=== PATIENT | female | born 1955 | race Caucasian/White ===

== ENCOUNTER 2017-06-20 09:40 | Outpatient (CLI) | payer OTHER ==
--- NOTE | 2017-06-20 11:13 | MMO ---
BILATERAL SCREENING MAMMOGRAM: Date: 06/20/17 INDICATION: Annual exam. COMPARISON: History of left mastectomy with TRAM flap procedure. FINDINGS: Exam compared to prior dated 08/20/13. There is fatty atrophy of the reconstructed left breast with a surgical clip. This is stable. There a re scattered fibroglandular elements within the right breast. The benign-appearing densities within t he right breast are stable. There are benign-appearing calcifications within both breasts. No suspicious mass, cluster of microcalcifications, or area of architectural distortion is evident. IMPRESSION: BIRADS 2: Benign Finding(s) Recommend routine annual mammographic screening. POS: [facility]
== END 2017-06-20 09:41 | disposition home or self-care (01) ==
LOC: MAMMO 09:40
PROVIDERS: ATTEND Family Medicine
DX: Z12.31 Encounter for screening mammogram for malignant neoplasm of breast (principal)
CPT/HCPCS: 77067; G0202

== ENCOUNTER 2017-12-29 16:24 | Emergency (ER) | payer OTHER ==
--- NOTE | 2017-12-29 17:40 | CT ---
CT BRAIN WITHOUT CONTRAST: 12/29/17 HISTORY: Hit head on the microscope. COMPARISON: None. FINDINGS: Moderate subcortical and deep white matter microangiopathic changes worse in the right frontal lobe. No acute territorial infarct or hemorrhage. No midline shift or mass effect. Ventricular size and ext ra-axial CSF spaces are normal. Calvarium is intact. The paranasal sinuses and mastoids are clear. IMPRESSION: Chronic changes. No acute intracranial abnormality. POS: [facility]
[2017-12-29] MEDS ORDERED: Ibuprofen 800 MG TAB ONE (17:46)
== END 2017-12-29 17:45 | disposition home or self-care (01) ==
LOC: ERS 16:24
DX: S00.03XA Contusion of scalp, initial encounter (principal); I10 Essential (primary) hypertension; E78.5 Hyperlipidemia, unspecified; W20.8XXA Other cause of strike by thrown, projected or falling object, initial encounter
CPT/HCPCS: 70450

== ENCOUNTER 2018-11-14 08:03 | Outpatient (CLI) | payer OTHER ==
--- NOTE | 2018-11-15 11:12 | MMO ---
Bilateral MAMMO Bilat Screen [facility]DI+NADER. CLINICAL HISTORY: Patient is 63 years old and is seen for screening. The patient has the following family history of breast cancer: mother. The patient has a history of left Mastectomy at age 38 and left Transflap at age 38. VIEWS: The views performed were: bilateral craniocaudal with tomosynthesis and bilateral mediolateral oblique with tomosynthesis. FILMS COMPARED: The present examination has been compared to prior imaging studies performed at [facility] on 01/27/2012, 08/20/2013, 04/06/2016 and 06/20/2017. MAMMOGRAM FINDINGS: There are scattered fibroglandular densities. There are stable benign appearing calcifications seen in both breasts. There are no suspicious masses, suspicious calcifications, or new areas of architectural distortion. IMPRESSION: THERE IS NO MAMMOGRAPHIC EVIDENCE OF MALIGNANCY. A ROUTINE FOLLOW-UP MAMMOGRAM IN 1 YEAR IS RECOMMENDED. THE RESULTS OF THIS EXAM WERE SENT TO THE PATIENT. ACR BI-RADS Category 2 - Benign finding MAMMOGRAPHY NOTE: 1. A negative mammogram report should not delay a biopsy if a dominant of clinically suspicious mass is present. 2. Approximately 10% to 15% of breast cancers are not detected by mammography. 3. Adenosis and dense breasts may obscure an underlying neoplasm.
== END 2018-11-14 08:04 | disposition home or self-care (01) ==
LOC: BICMAMMO 08:03
PROVIDERS: ATTEND Family Medicine
DX: Z12.31 Encounter for screening mammogram for malignant neoplasm of breast (principal); Z80.3 Family history of malignant neoplasm of breast; Z90.12 Acquired absence of left breast and nipple
CPT/HCPCS: 77063; 77067

== ENCOUNTER 2019-12-31 08:20 | Observation (INO) | payer OTHER ==
[2019-12-31] MEDS ORDERED: Aspirin Chewable 81 MG TAB ONE (08:59)
[2019-12-31] MEDS ORDERED: Nitroglycerin 2% Ointment 1 INCH/1 GM Packet ONE (08:59)
--- NOTE | 2019-12-31 09:24 | RAD ---
SINGLE VIEW OF THE CHEST: HISTORY: Shortness of breath and chest pain. FINDINGS: Single view of the chest shows a normal sized cardiomediastinal silhouette. There is no evidence of c onsolidation, mass, or pleural effusion. The bones are unremarkable. IMPRESSION: No evidence of acute cardiopulmonary disease. POS: [facility]
[2019-12-31] MEDS ORDERED: Iopamidol-370 76% 500 ML 1 ML ONE (09:48)
[2019-12-31 10:07] LABS: #Basophils 0.1 thou/uL (0.0-0.2); #Eosinphils 0.4 thou/uL (0.0-0.7); #Lymphocytes 2.1 thou/uL (1.20-3.40); #Monocytes 0.7 thou/uL (0.11-0.59); #Neutrophils 7.6 thou/uL (1.40-6.50); %Basophils 0.5 % (0.0-1.0); %Eosinophils 3.3 % (0.0-10.0); %Lymphocytes 19.3 % (21.0-51.0); %Monocytes 6.7 % (0.0-10.0); %Neutrophils 70.2 % (42.0-75.0); Hemoglobin 11.5 g/dL (12.0-16.0); Mean Corpuscular HGB CONC 33.1 g/dL (32.0-36.0); Mean Corpuscular Hemoglobin 29.4 pg (27.0-31.0); Mean Corpuscular Volume 88.8 fL (78.0-98.0); Mean Platelet Volume 7.6 fL (7.4-10.4); Platelet Count 273 thou/uL (130-400); RBC Distribution Width 12.3 % (11.5-14.5); Red Blood Cell (RBC) Count 3.91 mill/uL (4.20-5.40); White Blood Cell (WBC) Count 10.8 thou/uL (4.8-10.8)
[2019-12-31 10:30] LABS: ALT (SGPT) 18 U/L (8-55); AST (SGOT) 23 U/L (5-34); Albumin 3.5 g/dL (3.4-4.8); Alkaline Phosphatase 74 U/L (40-110); Anion Gap 13 mmol/L (10-20); BUN (Urea Nitrogen) 20 mg/dL (9.8-20.1); Bilirubin, Total 0.5 mg/dL (0.2-1.2); CK (CPK) 121 U/L (29-168); Calc. Creatinine Clearance 0 mL/min (70-130); Calcium 8.8 mg/dL (7.8-10.44); Carbon Dioxide 25 mmol/L (23-31); Chloride 103 mmol/L (98-107); Estimated GFR-MDRD 47; Globulin 3.2 g/dL (2.4-3.5); Glucose 150 mg/dL (80-115); Lipase 96 U/L (8-78); Potassium 4.1 mmol/L (3.5-5.1); Protein, Total 6.7 g/dL (6.0-8.3); Sodium 137 mmol/L (136-145)
[2019-12-31 10:54] LABS: CKMB 3.8 ng/mL (0-6.6)
[2019-12-31] MEDS ORDERED: diphenhydrAMINE 50 MG/ML VIAL ONE (11:40)
[2019-12-31] MEDS ORDERED: Metoclopramide HCl 10 MG/2 ML VIAL ONE (11:40)
[2019-12-31] MEDS ORDERED: Furosemide 40 MG/4 ML VIAL ONE (11:45)
--- NOTE | 2019-12-31 12:12 | CT ---
CT arteriogram chest with IV contrast and 3-D imaging HISTORY: Dyspnea. Chest pain. FINDINGS: There is good contrast opacification of the pulmonary arteries and thoracic aorta with norm al branching of the great vessels at the aortic arch. No pleural fluid, consolidation, pneumothorax, or mediastinal adenopathy. Tiny cystic lesion noted wi thin the posterior aspect of the superior segment right lower lobe. Degenerative changes throughout the thoracic spine. Postoperative changes of the left axilla. IMPRESSION : No CT evidence of pulmonary embolus.
[2019-12-31 13:57] VITALS: BMI 36.3
[2019-12-31] MEDS ORDERED: Ondansetron ODT 4 MG TAB SL PRN (14:39)
[2019-12-31] MEDS ORDERED: Ondansetron PF 4 MG/2 ML Vial IVP PRN ×2 (14:39→16:38)
[2019-12-31 14:46] LABS: Troponin I 0.027 ng/mL (< 0.028)
[2019-12-31] MEDS ORDERED: Nitroglycerin 2% Ointment 1 INCH/1 GM Packet TOP SCH (15:00)
[2019-12-31] MEDS ORDERED: hydrALAZINE 20 MG/ML VIAL SLOW IVP PRN (16:24)
[2019-12-31] MEDS ORDERED: Ibuprofen 200 MG TAB PO PRN (16:24)
[2019-12-31] MEDS ORDERED: Acetaminophen 325 MG TAB PO PRN (16:24)
[2019-12-31] MEDS ORDERED: Labetalol HCl 100 MG/20 ML VIAL SLOW IVP PRN (16:24)
[2019-12-31] MEDS ORDERED: Ondansetron ODT 4 MG TAB PO PRN (16:38)
[2019-12-31] MEDS ORDERED: Calcium Carbonate 500 MG ChewTAB PO PRN (16:38)
[2019-12-31] MEDS ORDERED: Senokot S 8.6-50 MG TAB PO PRN (16:38)
[2019-12-31] MEDS ORDERED: Dextrose 50% Abboject 50 ML SYRINGE SLOW IVP PRN (16:40)
[2019-12-31] MEDS ORDERED: Dextrose 5% in Water 1,000 ML IV PRN (16:40)
[2019-12-31] MEDS ORDERED: Insulin Regular 300 UNITS/3 ML VIAL SC PRN (16:40)
[2019-12-31] MEDS ORDERED: Nitroglycerin 0.4 MG TAB (25 Tab Bottle) PO PRN (16:42)
[2019-12-31] MEDS ORDERED: Lisinopril 10 MG TAB PO SCH (16:45)
[2019-12-31] MEDS ORDERED: Non-Formulary Item 1 EACH (Carvedilol [Carvedilol] 3.125 MG) PO SCH (17:00)
--- NOTE | 2019-12-31 17:02 | HP ---
PRIMARY CARE PHYSICIAN: Dr. Luis Jones. PRIMARY CONDUIT INSTALLER: Dr. Abraham Weston. CHIEF COMPLAINT: Chest discomfort with shortness of breath of 1-week duration. HISTORY OF PRESENT ILLNESS: The patient is a 64-year-old female with diabetes mellitus type 2, hypertension, and hyperlipidemia, presented to the emergency room with above complaints. Over the last 1 week, the patient developed gradual worsening shortness of breath along with chest discomfort. The shortness of breath is precipitated by lying down flat as well as on bending. She has chest tightness, especially when she is short of breath. The chest tightness is short in duration. It is radiating to her jaw. She has been scared to sleep due to this reason. She currently works as an OR nurse and has difficulty keeping her mask on. No fever, chills, recent immobilization , travel, sick contacts reported. No nausea, vomiting, diaphoresis, palpitations , or lower extremity edema reported. In the emergency room, her initial vital signs showed temperature 98.9 with respirations of 17, pulse rate of 73 with a blood pressure of 205/96, O2 saturation of 98% on room air. Her EKG showed sinus rhythm without significant ST-T wave changes. CT angiogram of the chest was negative. She received aspirin, Benadryl, Lasix, Reglan, along with nitroglycerin patch. She complains of intractable headache at this time that got worse with nitroglycerin patch. No double vision, blurring of vision, or facial asymmetry reported. PAST MEDICAL HISTORY: 1. Hypertension. 2. Diabetes mellitus type 2. 3. Hyperlipidemia. 4. Breast cancer. 5. Obesity. 6. Attention deficit disorder. PAST SURGICAL HISTORY: 1. Left inguinal hernia. 2. Left mastectomy. 3. Right oophorectomy. 4. Surgery for ruptured tubal . 5. Closed fracture of lumbar vertebra. ALLERGIES: NO KNOWN DRUG ALLERGIES. CURRENT HOME MEDICATIONS: 1. Carvedilol 3.125 mg b.i.d. 2. Fenofibrate 145 mg daily. 3. Lasix 20 mg daily. 4. Gabapentin 300 mg daily. 5. Vyvanse 60 mg daily. 6. Lisinopril 10 mg daily. 7. Meloxicam 15 mg daily. 8. Metformin 1000 mg daily. 9. Crestor 10 mg daily. FAMILY HISTORY: Father at age of 77. He was diagnosed with diabetes and Alzheimer's. Mother at the age of 85 with GI bleed. She also had breast cancer and diabetes. Cancer runs in her family. SOCIAL HISTORY: The patient currently works in hospital OR. She currently lives at home with her spouse. She is a former smoker. She makes her own decision with the help of her family. REVIEW OF SYSTEMS: All other review of systems reviewed and were found negative. PHYSICAL EXAMINATION: VITAL SIGNS: As discussed above. GENERAL: A 64-year-old female, in no apparent distress. HEENT: Head, atraumatic and normocephalic. Sclerae anicteric. Moist mucous membranes. No oral lesion. NECK: Supple. No JVD appreciated. No carotid bruit. LUNGS: Clear to auscultation bilaterally. No wheezing, rales, or rhonchi. HEART: S1 and S2 present. Regular rate and rhythm. No rubs or gallops. ABDOMEN: Soft and nontender. Bowel sounds present. EXTREMITIES: No edema or calf tenderness. NEUROLOGY: Grossly nonfocal. Moves all 4 extremities. PSYCHIATRY: Alert, awake, and oriented x3. LYMPH NODES: No palpable lymph nodes in the neck. MUSCULOSKELETAL: No joint swelling or tenderness. LABORATORY FINDINGS: CBC showed WBC 10.8 with hemoglobin 11.5, hematocrit 34.7 , and platelets 273. D-dimer was negative at 0.42. Chemistry showed sodium 137, potassium 4.1, chloride 103, bicarb 25, BUN of 20, creatinine 1.1. LFTs in normal range. Troponin was of 0.032. Repeat troponin 0.027. BNP was 441. EKG by my review showed sinus rhythm without significant ST-T wave changes. Chest x-ray by my review was negative for infiltrate or edema. CT angiogram of the chest was negative for infiltrate or edema. IMPRESSION: 1. Chest discomfort with shortness of breath. Her symptoms are concerning for cardiac etiology. 2. Diabetes mellitus type 2. 3. Hypertension with hypertensive urgency. 4. Headache probably due to nitroglycerin patch. 5. History of migraine. 6. History of breast cancer. 7. Hyperlipidemia. 8. Obesity with a BMI of 36.4. 9. Chronic kidney disease, stage 3. 10. Chronic anemia suspected due to nutritional deficiency. PLAN: The patient will be monitored in the telemetry unit as observation. Cardiology will be consulted. We will continue aspirin. We will follow serial troponins. We will keep her n.p.o. past midnight. Insulin sliding scale. We will resume her home medications. Echocardiogram has been ordered. The patient understands the above plan of care. Job ID: [id number] MTDWilbert
[2019-12-31] MEDS: Carvedilol 6.25 MG TAB PO SCH (17:22)
[2019-12-31 17:49] LABS: Troponin I 0.025 ng/mL (< 0.028)
[2019-12-31] MEDS ORDERED: Furosemide 40 MG/4 ML VIAL SLOW IVP SCH (21:00)
[2019-12-31] MEDS: Lisinopril 10 MG TAB PO SCH (21:25)
[2019-12-31] MEDS: Famotidine 20 MG TAB PO SCH (21:26)
[2020-01-01 05:33] LABS: #Basophils 0.1 thou/uL (0.0-0.2); #Eosinphils 0.3 thou/uL (0.0-0.7); #Lymphocytes 2.2 thou/uL (1.20-3.40); #Monocytes 0.7 thou/uL (0.11-0.59); #Neutrophils 4.6 thou/uL (1.40-6.50); %Basophils 0.7 % (0.0-1.0); %Eosinophils 3.8 % (0.0-10.0); %Lymphocytes 28.2 % (21.0-51.0); %Neutrophils 58.3 % (42.0-75.0); Hemoglobin 12.5 g/dL (12.0-16.0); Mean Corpuscular HGB CONC 32.6 g/dL (32.0-36.0); Mean Corpuscular Hemoglobin 29.1 pg (27.0-31.0); Mean Corpuscular Volume 89.1 fL (78.0-98.0); Platelet Count 283 thou/uL (130-400); RBC Distribution Width 12.5 % (11.5-14.5); White Blood Cell (WBC) Count 7.9 thou/uL (4.8-10.8)
[2020-01-01 05:58] LABS: ALT (SGPT) 17 U/L (8-55); AST (SGOT) 26 U/L (5-34); Albumin 3.4 g/dL (3.4-4.8); Alkaline Phosphatase 72 U/L (40-110); Anion Gap 16 mmol/L (10-20); BUN (Urea Nitrogen) 25 mg/dL (9.8-20.1); Bilirubin, Total 0.6 mg/dL (0.2-1.2); Calc. Creatinine Clearance 73 mL/min (70-130); Calcium 8.7 mg/dL (7.8-10.44); Carbon Dioxide 24 mmol/L (23-31); Cardiac Risk 4.7 (Less than 4.5); Chloride 103 mmol/L (98-107); Cholesterol 154 mg/dl (< 200 Desired); Estimated GFR-MDRD 45; Globulin 3.6 g/dL (2.4-3.5); Glucose 106 mg/dL (80-115); HDL Cholesterol 33 mg/dL (>60 Neg Risk); LDL Cholesterol, Calculated 90 mg/dL; Magnesium 1.7 mg/dL (1.6-2.6); Potassium 3.6 mmol/L (3.5-5.1); Sodium 139 mmol/L (136-145); Triglycerides 156 mg/dL (Less than 150)
[2020-01-01] MEDS ORDERED: Magnesium 2 GM/50 ML 2 GM in Premix Bag 1 BAG IVPB SCH (07:00)
[2020-01-01] MEDS ORDERED: Magnesium Sulfate 2 GM in Sodium Chloride 0.9% 100 ML IVPB SCH (07:00)
[2020-01-01] MEDS ORDERED: metFORMIN 500 MG TAB PO SCH (08:00)
[2020-01-01] MEDS: Gabapentin 300 MG CAP PO SCH (08:21)
[2020-01-01] MEDS: Lisinopril 10 MG TAB PO SCH ×2 (08:21→20:40)
[2020-01-01] MEDS: Meloxicam 15 MG TAB PO SCH (08:21)
[2020-01-01] MEDS: Carvedilol 6.25 MG TAB PO SCH ×2 (08:21→17:10)
[2020-01-01] MEDS: Famotidine 20 MG TAB PO SCH ×2 (08:21→20:40)
[2020-01-01] MEDS ORDERED: Furosemide 20 MG TAB PO SCH (09:00)
[2020-01-01] MEDS ORDERED: FENOFIBRATE 145 MG PO SCH (09:00)
[2020-01-01] MEDS ORDERED: Furosemide 20 MG/2 ML VIAL SLOW IVP SCH (09:00)
[2020-01-01] MEDS ORDERED: Aspirin 325 mg Enteric Coated Tablet PO SCH (09:00)
[2020-01-01] MEDS ORDERED: Regadenoson 0.4 MG/5 ML SYRINGE ONE (09:40)
--- NOTE | 2020-01-01 15:57 | CON ---
DATE OF CONSULTATION: HISTORY OF PRESENT ILLNESS: Dena Jluien is a 64-year-old white female, who I have followed since 2006. At that time, she was sent for preoperative evaluation prior to possible lap band surgery. She had an abnormal Cardiolite treadmill test and underwent cardiac catheterization in October 2006. This revealed normal coronary arteries and moderate left ventricular dysfunction with ejection fraction of 30 % to 35%. She was placed on carvedilol and her left ventricular function gradually improved. In January 2008, she had ejection fraction of 50% to 55%. This has been maintained over time with last echo in April 2017. Ejection fraction was 50 % to 55% at that time and that was the last time that I have seen her, as she has not returned for followup. She now complains over the last 2 to 3 weeks of increased shortness of breath. To me, she denies any chest discomfort, but that was one of her complaints. This seems to have worsened with the COVID-19 pandemic in that she has to wear her mask all the time and this seems to make the shortness of breath worse. She states that she is short of breath all the time. She denies any peripheral edema. She denies any palpitations. PAST MEDICAL HISTORY: Hypertension, diabetes, hypercholesterolemia, diastolic dysfunction seen on echo, history of breast cancer. MEDICATIONS: On the computer is listed that she takes: 1. Carvedilol 3.125 b.i.d.; however, she states she takes 12.5 b.i.d. She is unsure of her other medications, but on the computer, the list is: 2. Fenofibrate 145 daily. 3. Furosemide 20 daily (she thinks this was discontinued due to abnormal creatinine). 4. Gabapentin 300 daily. 5. Vyvanse 60 daily. 6. Lisinopril 10 daily. 7. Meloxicam 15 daily. 8. Metformin 1000 mg daily. 9. Crestor 10 mg daily. ALLERGIES: NONE. SOCIAL HISTORY: Former smoker. She rarely drinks. PAST SURGICAL HISTORY: Left inguinal herniorrhaphy, surgery for ruptured tubal , right oophorectomy, left mastectomy, right knee arthroscopy, open cholecystectomy, hysterectomy. FAMILY HISTORY: Negative for coronary artery disease. REVIEW OF SYSTEMS: A 10-point review of systems is otherwise unremarkable. PHYSICAL EXAMINATION: VITAL SIGNS: Blood pressure 178/96 and pulse of 76. HEENT: PERRL. NECK: Supple. CHEST: Clear. CARDIAC: S1 and S2 normal without any S3, S4, or murmurs. Carotid upstrokes are normal without bruits. ABDOMEN: Obese. Normal bowel sounds. No tenderness. EXTREMITIES: No clubbing, cyanosis, or edema. NEUROLOGIC: Grossly intact. SKIN: Warm and dry. DIAGNOSTIC DATA: EKG reveals normal sinus rhythm and is unremarkable. Echocardiogram revealed ejection fraction of 50% to 55% with moderate left atrial enlargement, mild mitral regurgitation. Chest x-ray was normal. CT angiogram of the chest revealed no evidence of pulmonary embolism. LABORATORY DATA: CBC is unremarkable. Sodium 139, potassium 3.6, chloride 103, carbon dioxide 24, BUN 25, creatinine 1.21. Troponin I 0.032. Cholesterol 154, triglycerides 156, HDL 33, LDL 90. TSH is normal. BNP 441.3. IMPRESSION: 1. Shortness of breath. A lot of her symptoms sound anxiety related. 2. The patient denies any type of chest discomfort to me, although she did to the admitting physician. 3. Hypertension, poorly controlled. 4. Hypercholesterolemia, poorly controlled. 5. Diabetes. 6. History of normal coronary arteries in October 2006. 7. History of breast cancer. 8. Obesity. 9. Chronic kidney disease. 10. Former smoker. PLAN: Ms. Julien will be restarted on the carvedilol 12.5 b.i.d. that she presently takes at home. I have asked her to have someone bring her medicines from home since it is somewhat confusing to me exactly what medicine she is currently taking. Apparently, the furosemide was discontinued due to an elevated creatinine, but she is uncertain if she is taking lisinopril. She will undergo adenosine Cardiolite testing to further evaluate possible cardiac etiology of her symptoms. Job ID: [id number] MTDD
[2020-01-01] MEDS: Insulin Regular 300 UNITS/3 ML VIAL SC PRN (17:11)
--- NOTE | 2020-01-01 18:44 | PDOC.HOSPP ---
- Subjective Encounter Date: 01/01/20 Encounter Time: 17:00 Subjective: Patient seen and examined for SOB. No cough/CP. No new complaints. No overnight events - Objective Vital Signs & Weight: Vital Signs (12 hours) Temp Pulse Resp BP Pulse Ox 01/01/20 15:33 98.3 F 17 138/79 96 01/01/20 12:27 97.7 F 82 18 138/78 96 01/01/20 07:42 98.3 F 76 19 178/96 H 95 Weight Weight 224 lb 3.362 oz I&O: 12/31/19 01/01/20 01/02/20 06:59 06:59 06:59 Intake Total 480 Balance 480 Result Diagrams: 01/01/20 05:06 01/01/20 05:06 Additional Labs: Accuchecks 01/01/20 01/01/20 12/31/19 16:55 05:30 20:41 POC Glucose 170 H 134 H 180 H Radiology Reviewed by me: Yes (CXR- reviewed) EKG Reviewed by me: Yes (SR, PAT earlier) Hospitalist ROS - Review of Systems Respiratory: denies: cough, dry, shortness of breath, hemoptysis, SOB with excertion, pleuritic pain, sputum, wheezing, other Cardiovascular: denies: chest pain, palpitations, orthopnea, paroxysmal noc. dyspnea, edema, light headedness, other Gastrointestinal: denies: nausea, vomiting, abdominal pain, diarrhea, constipation, melena, hematochezia, other - Medication Medications: Active Medications Generic Name Dose Route Start Last Admin Trade Name Freq PRN Reason Stop Dose Admin Acetaminophen 650 mg 12/31/19 16:24 12/31/19 16:40 Tylenol PO 650 mg Q4H PRN Administration Headache/Fever/Mild Pain (1-3) Aspirin 325 mg 01/01/20 09:00 01/01/20 09:22 Ecotrin PO 325 mg DAILY ALYX Administration Carvedilol 12.5 mg 01/01/20 17:00 01/01/20 17:10 Coreg PO 12.5 mg BID-WM ALYX Administration Famotidine 20 mg 12/31/19 21:00 01/01/20 08:21 Pepcid PO 20 mg BID ALYX Administration Furosemide 20 mg 01/01/20 09:00 01/01/20 08:22 Lasix SLOW IVP 20 mg DAILY ALYX Administration Gabapentin 300 mg 01/01/20 09:00 01/01/20 08:21 Neurontin PO 300 mg DAILY ALYX Administration Hydralazine HCl 10 mg 12/31/19 16:24 12/31/19 16:39 Apresoline SLOW IVP 10 mg Q4H PRN Administration SBP Greater Than 180 Insulin Human Regular 0 units 12/31/19 16:40 01/01/20 17:11 Humulin R SC 2 unit .MILD SLIDING SCALE PRN Administration Mild Correctional Scale Lisinopril 10 mg 12/31/19 21:00 01/01/20 08:21 Zestril PO 10 mg BID ALYX Administration Meloxicam 15 mg 01/01/20 09:00 01/01/20 08:21 Mobic PO 15 mg DAILY ALYX Administration Sodium Chloride 10 ml 01/01/20 09:00 01/01/20 08:22 Flush - Normal Saline IVF 10 ml Q12HR ALYX Administration - Exam General Appearance: NAD Neck: supple, no JVD Heart: RRR, no gallops, no rubs, normal peripheral pulses Respiratory: no wheezes, no rales, no ronchi, normal chest expansion Gastrointestinal: soft, non-tender, non-distended, normal bowel sounds Extremities: no cyanosis, no clubbing, no edema Neurological: no new deficit Psychiatric: normal affect, A&O x 3 Hosp A/P - Plan DVT proph w/SCDs 1. SOB with ?Chest tightness 2. DM2. 3. Hypertension with hypertensive urgency. 4. PAT 5. History of migraine. 6. History of breast cancer. 7. Hyperlipidemia. 8. Obesity with a BMI of 36.4. 9. Chronic kidney disease, stage 3. 10. Chronic anemia suspected due to nutritional deficiency. PLAN: Change ASA to 81 mg/d Echo reviewed Await stress test Coreg changed to home dose Change Lisinopril to 20 mg daily Cont other meds Resume Metformin after 48 hr Cardio input appreciated
[2020-01-01] MEDS ORDERED: Rosuvastatin 10 MG TAB PO SCH (21:00)
[2020-01-02] MEDS: Insulin Regular 300 UNITS/3 ML VIAL SC PRN (06:09)
[2020-01-02] MEDS ORDERED: Aspirin 81 mg Enteric Coated Tablet PO SCH (09:00)
[2020-01-02] MEDS ORDERED: Furosemide 20 MG TAB PO SCH (09:00)
[2020-01-02] MEDS ORDERED: Lisinopril 20 MG TAB PO SCH (09:00)
[2020-01-02 11:20] VITALS: TEMP 97.6
--- NOTE | 2020-01-02 12:00 | NM ---
CARDIAC SPECT: CLINICAL HISTORY: 64-year-old female with chest pain, hypertension, diabetes, and dyslipidemia. TECHNIQUE: A myocardial perfusion scan was performed using the single isotope two day protocol with 32 mCi techn etium-99m sestamibi injected intravenously for both stress and rest images. Exercise stress was monit ored and interpreted by Onel Han NP. FINDINGS: Fairly homogeneous tracer distribution is seen in the myocardial segments on stress and rest images w ithout fixed or reversible defects. GATED SPECT LVEF: 62%. WALL MOTION EXAM: Normal. IMPRESSION: Normal myocardial perfusion scan. POS: [facility]
[2020-01-02 12:39] VITALS: BP 142/96
[2020-01-02] MEDS: Carvedilol 6.25 MG TAB PO SCH (12:49)
[2020-01-02] MEDS: Gabapentin 300 MG CAP PO SCH (12:49)
[2020-01-02] MEDS: Meloxicam 15 MG TAB PO SCH (12:49)
[2020-01-02] MEDS: Famotidine 20 MG TAB PO SCH (12:49)
--- NOTE | 2020-01-02 16:15 | EKG ---
Test Reason : Blood Pressure : / mmHG Vent. Rate : 066 BPM Atrial Rate : 066 BPM P-R Int : 146 ms QRS Dur : 078 ms QT Int : 402 ms P-R-T Axes : 087 066 046 degrees QTc Int : 421 ms Normal sinus rhythm Normal ECG Confirmed by HOWARD CHANG, ALEXANDR ([id number]), industrial editor KARYN BROOSK ([id number]) on 01/02/2020 4:15:00 PM Referred By: Confirmed By:ALEXANDR LAWRENCE MD
--- NOTE | 2020-01-02 16:48 | DIS ---
DATE OF ADMISSION: 12/31/2019 DATE OF DISCHARGE: 01/02/2020 DISCHARGE DISPOSITION: Home. FOLLOWUP: 1. Follow up with primary care physician, Dr. Luis Jones in 1 week. 2. Follow up with Dr. Abraham Weston in 3 to 4 weeks. The patient was seen and examined on the day of discharge. Denies any new complaints. No chest pain, shortness of breath, or palpitations. DISCHARGE MEDICATIONS: Same as admission medication. Clonidine was added on a p.r.n. basis. BRIEF HOSPITAL COURSE: The patient is a 64-year-old white female with hypertension, diabetes mellitus type 2, hyperlipidemia, and chronic diastolic heart failure, presented to the hospital with shortness of breath along with questionable chest tightness. She was monitored on the telemetry unit. First set of troponin was 0.032. Repeat troponins were negative. BNP was 441. The patient was evaluated by Cardiology, Dr. Abraham Weston, who recommended a stress test. The stress test was negative for reversible ischemia. There was no wall motion abnormality. Ejection fraction was 62%. Echocardiogram showed ejection fraction 50% to 55% with mild mitral regurgitation. She has been cleared by Cardiology for discharge. FINAL DIAGNOSES: 1. Shortness of breath of unclear etiology. Probably anxiety related. 2. Questionable chest tightness, acute coronary syndrome ruled out. 3. Normal coronaries in 2006. 4. Hypertension. 5. Hyperlipidemia. 6. Diabetes mellitus type 2. 7. History of breast cancer. 8. History of migraine. 9. Paroxysmal atrial tachycardia, resolved after resuming beta blockers. 10. Chronic anemia, suspected due to nutritional deficiency. 11. Chronic kidney disease, stage 3. 12. Obesity with a BMI of 36.4. 13. Hyperlipidemia. 14. The patient understands the above plan of care. Job ID: [id number]
== END 2020-01-02 16:04 | disposition home or self-care (01) ==
LOC: ERS 08:20 → 2SE 13:44
PROVIDERS: ADMIT Internal Medicine; ATTEND Internal Medicine
DX: R06.02 Shortness of breath (principal); R07.89 Other chest pain; I16.0 Hypertensive urgency; I13.0 Hypertensive heart and chronic kidney disease with heart failure and stage 1 through stage 4 chronic kidney disease, or unspecified chronic kidney disease; E11.22 Type 2 diabetes mellitus with diabetic chronic kidney disease; N18.3 Chronic kidney disease, stage 3 (moderate); I50.32 Chronic diastolic (congestive) heart failure; D63.1 Anemia in chronic kidney disease; E78.5 Hyperlipidemia, unspecified; F98.8 Other specified behavioral and emotional disorders with onset usually occurring in childhood and adolescence; R51 Headache; E78.00 Pure hypercholesterolemia, unspecified; I47.1 Supraventricular tachycardia; E66.9 Obesity, unspecified; Z68.36 Body mass index [BMI] 36.0-36.9, adult; Z87.891 Personal history of nicotine dependence; Z79.1 Long term (current) use of non-steroidal anti-inflammatories (NSAID); Z79.84 Long term (current) use of oral hypoglycemic drugs; Z79.899 Other long term (current) drug therapy
CPT/HCPCS: 36415; 36416; 71045; 71275; 78452; 80053; 80061; 82550; 82553; 83690; 83735; 83880; 84443; 84484; 85025; 85379; 93005; 93017; 93306; 94760; 96365; 96375; 96376; A9500; G0378; J0360; J1200; J1815; J1940; J2765; J2785; J3475; Q9967

== ENCOUNTER 2020-07-08 13:51 | Outpatient (CLI) | payer OTHER ==
--- NOTE | 2020-07-08 14:22 | RAD ---
TWO VIEW CHEST: 07/08/20 INDICATIONS: Dyspnea. COMPARISON: 12/31/19. Mild cardiomegaly is stable. Mild vascular engorgement. There are hazy linear and somewhat patchy den sities seen peripherally at both mid and lower lungs which could represent ground glass type infiltra te of COVID pneumonia. No effusion. IMPRESSION: Increased interstitial and hazy alveolar opacities more prominent in the peripheral left lower lung f ield. Follow-up recommended. POS: [facility]
== END 2020-07-08 13:52 | disposition home or self-care (01) ==
LOC: BICRAD 13:51
PROVIDERS: ATTEND Internal Medicine Pulmonary Disease
DX: R06.00 Dyspnea, unspecified (principal); R91.8 Other nonspecific abnormal finding of lung field
CPT/HCPCS: 71046

== ENCOUNTER 2021-07-17 04:57 | Emergency (ER) | payer OTHER ==
[2021-07-17] MEDS ORDERED: Morphine 4 MG/ML VIAL ONE ×2 (05:37→06:40)
[2021-07-17] MEDS ORDERED: Ondansetron PF 4 MG/2 ML Vial ONE (05:37)
[2021-07-17 05:59] LABS: #Basophils 0.1 thou/uL (0.0-0.2); #Eosinphils 0.4 thou/uL (0.0-0.7); #Lymphocytes 2.4 thou/uL (1.20-3.40); #Monocytes 0.6 thou/uL (0.11-0.59); #Neutrophils 4.2 thou/uL (1.40-6.50); %Basophils 1.1 % (0.0-1.0); %Eosinophils 5.1 % (0.0-10.0); %Monocytes 8.1 % (0.0-10.0); %Neutrophils 54.7 % (42.0-75.0); Mean Corpuscular HGB CONC 35.7 g/dL (32.0-36.0); Mean Corpuscular Hemoglobin 31.2 pg (27.0-31.0); Mean Corpuscular Volume 87.5 fL (78.0-98.0); Mean Platelet Volume 6.9 fL (7.4-10.4); Platelet Count 249 thou/uL (130-400); RBC Distribution Width 11.8 % (11.5-14.5); Red Blood Cell (RBC) Count 4.16 mill/uL (4.20-5.40); White Blood Cell (WBC) Count 7.6 thou/uL (4.8-10.8)
[2021-07-17 06:01] LABS: Bacteria/HPF 1+ HPF (None Seen); Bilirubin Negative (Negative); Blood, Urine Negative (Negative); Clarity Clear (Clear); Glucose, Urine (Dipstick) Normal (Negative); Ketone, Urine Negative (Negative); Leukocyte 500 Leu/uL (Negative); Nitrite Negative (Negative); Protein, Urine (Dipstick) Negative (Neg-Trace); RBC/HPF 0-3 HPF (0-3); Specific Gravity, Urine 1.009 (1.002-1.036); Squamous Epithelial 0-3 HPF (0-3); Urobilinogen Normal mg/dL (Less than 2); WBC/HPF 21-50 HPF (0-3); pH, Urine 6.5 (5.0-9.0)
[2021-07-17 06:18] LABS: ALT (SGPT) 15 U/L (8-55); AST (SGOT) 21 U/L (5-34); Albumin 3.3 g/dL (3.4-4.8); Alkaline Phosphatase 68 U/L (40-110); Anion Gap 13 mmol/L (10-20); BUN (Urea Nitrogen) 24 mg/dL (9.8-20.1); Bilirubin, Total 0.6 mg/dL (0.2-1.2); Calc. Creatinine Clearance 0 mL/min (70-130); Calcium 9.1 mg/dL (7.8-10.44); Carbon Dioxide 25 mmol/L (23-31); Chloride 102 mmol/L (98-107); Globulin 3.6 g/dL (2.4-3.5); Glucose 116 mg/dL (80-115); Lipase 139 U/L (8-78); Protein, Total 6.9 g/dL (5.8-8.1); Sodium 136 mmol/L (136-145)
[2021-07-17] MEDS ORDERED: Iopamidol 370 76% 100 ML VIAL ONE (12:11)
== END 2021-07-17 08:26 | disposition home or self-care (01) ==
LOC: ERS 04:57
DX: N10 Acute pyelonephritis (principal); I10 Essential (primary) hypertension; E78.5 Hyperlipidemia, unspecified; E11.9 Type 2 diabetes mellitus without complications
CPT/HCPCS: 36415; 74177; 80053; 81003; 81015; 83690; 85025; 87077; 87086; 87186; 96374; 96375; 96376; J2270; J2405; Q9967

== ENCOUNTER 2021-07-20 00:19 | Emergency (ER) | payer OTHER ==
[2021-07-20 01:19] LABS: Bilirubin Negative (Negative); Blood, Urine Negative (Negative); Clarity Clear (Clear); Glucose, Urine (Dipstick) Normal (Negative); Ketone, Urine Negative (Negative); Leukocyte Negative Leu/uL (Negative); Nitrite Negative (Negative); Protein, Urine (Dipstick) Negative (Neg-Trace); Specific Gravity, Urine 1.004 (1.002-1.036); Urobilinogen Normal mg/dL (Less than 2)
[2021-07-20] MEDS ORDERED: Morphine 4 MG/ML VIAL ONE (01:39)
[2021-07-20 01:45] LABS: #Eosinphils 0.4 thou/uL (0.0-0.7); #Lymphocytes 2.5 thou/uL (1.20-3.40); #Monocytes 0.6 thou/uL (0.11-0.59); #Neutrophils 4.5 thou/uL (1.40-6.50); %Basophils 0.6 % (0.0-1.0); %Eosinophils 5.1 % (0.0-10.0); %Lymphocytes 31.1 % (21.0-51.0); %Neutrophils 56.3 % (42.0-75.0); Hemoglobin 12.7 g/dL (12.0-16.0); Mean Corpuscular HGB CONC 34.4 g/dL (32.0-36.0); Mean Corpuscular Hemoglobin 30.3 pg (27.0-31.0); Mean Corpuscular Volume 88.3 fL (78.0-98.0); Mean Platelet Volume 7.2 fL (7.4-10.4); Platelet Count 293 thou/uL (130-400); RBC Distribution Width 11.9 % (11.5-14.5); White Blood Cell (WBC) Count 8.1 thou/uL (4.8-10.8)
[2021-07-20 02:05] LABS: ALT (SGPT) 13 U/L (8-55); AST (SGOT) 21 U/L (5-34); Albumin 3.4 g/dL (3.4-4.8); Alkaline Phosphatase 69 U/L (40-110); Anion Gap 15 mmol/L (10-20); BUN (Urea Nitrogen) 20 mg/dL (9.8-20.1); Bilirubin, Total 0.5 mg/dL (0.2-1.2); Calc. Creatinine Clearance 0 mL/min (70-130); Calcium 9.1 mg/dL (7.8-10.44); Carbon Dioxide 23 mmol/L (23-31); Chloride 102 mmol/L (98-107); Globulin 3.7 g/dL (2.4-3.5); Glucose 147 mg/dL (80-115); Lipase 136 U/L (8-78); Potassium 3.8 mmol/L (3.5-5.1); Protein, Total 7.1 g/dL (5.8-8.1); Sodium 136 mmol/L (136-145)
[2021-07-20] MEDS ORDERED: Sucralfate 1 GM/10 ML UDCUP ONE (02:47)
[2021-07-20] MEDS ORDERED: Iopamidol-370 76% 500 ML 1 ML ONE (13:15)
== END 2021-07-20 05:37 | disposition home or self-care (01) ==
LOC: ERS 00:19
DX: R10.12 Left upper quadrant pain (principal); E11.9 Type 2 diabetes mellitus without complications; I10 Essential (primary) hypertension; E78.5 Hyperlipidemia, unspecified; E78.00 Pure hypercholesterolemia, unspecified; Z79.84 Long term (current) use of oral hypoglycemic drugs
CPT/HCPCS: 36415; 71275; 74174; 80053; 81003; 83690; 85025; 93005; 96372; J2270; Q9967

== ENCOUNTER 2022-06-07 13:42 | Inpatient (IN) | payer BC, MEDICARE ==
[2022-06-07 14:08] LABS: #Basophils 0.1 thou/uL (0.0-0.2); #Eosinphils 0.3 thou/uL (0.0-0.7); #Lymphocytes 1.8 thou/uL (1.20-3.40); #Monocytes 0.5 thou/uL (0.11-0.59); #Neutrophils 4.4 thou/uL (1.40-6.50); %Basophils 0.8 % (0.0-1.0); %Eosinophils 4.8 % (0.0-10.0); %Lymphocytes 25.4 % (21.0-51.0); %Monocytes 7.2 % (0.0-10.0); %Neutrophils 61.7 % (42.0-75.0); Hemoglobin 11.4 g/dL (12.0-16.0); Mean Corpuscular HGB CONC 32.9 g/dL (32.0-36.0); Mean Corpuscular Hemoglobin 30.4 pg (27.0-31.0); Mean Corpuscular Volume 92.5 fL (78.0-98.0); Mean Platelet Volume 7.6 fL (7.4-10.4); Platelet Count 277 thou/uL (130-400); RBC Distribution Width 11.9 % (11.5-14.5); Red Blood Cell (RBC) Count 3.73 mill/uL (4.20-5.40); White Blood Cell (WBC) Count 7.2 thou/uL (4.8-10.8)
[2022-06-07 14:29] LABS: ALT (SGPT) 16 U/L (8-55); AST (SGOT) 27 U/L (5-34); Alkaline Phosphatase 47 U/L (40-110); Anion Gap 10 mmol/L (10-20); BUN (Urea Nitrogen) 33 mg/dL (9.8-20.1); Bilirubin, Total 0.3 mg/dL (0.2-1.2); Calc. Creatinine Clearance 0 mL/min (70-130); Calcium 8.5 mg/dL (7.8-10.44); Carbon Dioxide 29 mmol/L (23-31); Chloride 102 mmol/L (98-107); Estimated GFR 17; Glucose 124 mg/dL (80-115); Potassium 3.8 mmol/L (3.5-5.1); Sodium 137 mmol/L (136-145)
[2022-06-07 14:46] LABS: CK (CPK) 260 U/L (29-168); Lipase 92 U/L (8-78)
[2022-06-07 14:50] LABS: CKMB 4.5 ng/mL (0-6.6)
[2022-06-07] MEDS ORDERED: Aspirin Chewable 81 MG TAB ONE (15:17)
[2022-06-07] MEDS ORDERED: Furosemide 40 MG/4 ML VIAL ONE (15:17)
[2022-06-07] MEDS ORDERED: Acetaminophen 325 MG TAB PO PRN (15:33)
[2022-06-07] MEDS ORDERED: Acetaminophen 650 MG Suppository PR PRN (15:33)
[2022-06-07] MEDS ORDERED: Senokot S 8.6-50 MG TAB PO PRN (15:33)
[2022-06-07] MEDS ORDERED: Ondansetron PF 4 MG/2 ML Vial IVP PRN (15:33)
[2022-06-07] MEDS ORDERED: Ondansetron ODT 4 MG TAB PO PRN (15:33)
[2022-06-07] MEDS ORDERED: Bisacodyl 5 MG TAB PO PRN (15:33)
[2022-06-07 16:17] LABS: Bilirubin Negative (Negative); Blood, Urine Negative (Negative); Clarity Clear (Clear); Glucose, Urine (Dipstick) Normal (Negative); Ketone, Urine Negative (Negative); Leukocyte Negative Leu/uL (Negative); Nitrite Negative (Negative); Protein, Urine (Dipstick) 10 mg/dL (Neg-Trace); Specific Gravity, Urine 1.008 (1.002-1.036); Urobilinogen Normal mg/dL (Less than 2); pH, Urine 6.5 (5.0-9.0)
[2022-06-07] MEDS ORDERED: Enoxaparin Sodium 80 MG/0.8 ML SYRINGE ONE (16:25)
[2022-06-07] MEDS ORDERED: Enoxaparin Sodium 30 MG/0.3 ML SYRINGE ONE (16:25)
[2022-06-07 17:09] LABS: SARS-CoV-2 NAA Rapid Test DETECTED (NotDetected)
[2022-06-07 17:26] LABS: Troponin I 0.048 ng/mL (< 0.028)
[2022-06-07 20:47] LABS: Troponin I 0.046 ng/mL (< 0.028)
[2022-06-07] MEDS ORDERED: Carvedilol 25 MG TAB PO SCH (23:15)
[2022-06-08 03:22] VITALS: BMI 39.6
[2022-06-08 04:36] LABS: #Eosinphils 0.5 thou/uL (0.0-0.7); #Monocytes 0.6 thou/uL (0.11-0.59); #Neutrophils 3.4 thou/uL (1.40-6.50); %Basophils 0.6 % (0.0-1.0); %Eosinophils 7.6 % (0.0-10.0); %Lymphocytes 31.2 % (21.0-51.0); %Monocytes 8.7 % (0.0-10.0); %Neutrophils 51.9 % (42.0-75.0); Hemoglobin 11.3 g/dL (12.0-16.0); Mean Corpuscular HGB CONC 33.8 g/dL (32.0-36.0); Mean Corpuscular Hemoglobin 31.4 pg (27.0-31.0); Mean Corpuscular Volume 93.1 fl (78.0-98.0); Mean Platelet Volume 8.1 fL (7.4-10.4); Platelet Count 246 thou/uL (130-400); RBC Distribution Width 11.8 % (11.5-14.5); Red Blood Cell (RBC) Count 3.58 mill/uL (4.20-5.40); White Blood Cell (WBC) Count 6.5 thou/uL (4.8-10.8)
[2022-06-08 05:02] LABS: Anion Gap 12 mmol/L (10-20); BUN (Urea Nitrogen) 32 mg/dL (9.8-20.1); Calc. Creatinine Clearance 38 mL/min (70-130); Calcium 8.2 mg/dL (7.8-10.44); Carbon Dioxide 26 mmol/L (23-31); Chloride 105 mmol/L (98-107); Estimated GFR 20; Glucose 71 mg/dL (80-115); Potassium 4.1 mmol/L (3.5-5.1); Sodium 139 mmol/L (136-145)
[2022-06-08] MEDS: Furosemide 40 MG/4 ML VIAL SLOW IVP SCH ×2 (06:39→15:02)
[2022-06-08] MEDS ORDERED: Acetaminophen 325 MG TAB PO PRN (08:42)
[2022-06-08] MEDS ORDERED: Benzonatate 100 MG CAP PO PRN (08:42)
[2022-06-08] MEDS ORDERED: Albuterol 200 PUFF (6.7GM INHALER) INH PRN (08:42)
[2022-06-08] MEDS ORDERED: Acetaminophen 650 MG Suppository PR PRN (08:42)
[2022-06-08] MEDS ORDERED: Carvedilol 25 MG TAB PO SCH ×2 (09:00→11:00)
[2022-06-08] MEDS ORDERED: Gabapentin 100 MG CAP PO SCH (09:00)
[2022-06-08] MEDS ORDERED: Rosuvastatin 5 MG TAB PO SCH (09:00)
[2022-06-08] MEDS ORDERED: FLU VACC QS2022-23(65YR UP)/PF 240 MCG/0.7 ML SYRINGE IM ONE (09:00)
[2022-06-08] MEDS ORDERED: Fenofibrate 48 MG TAB PO SCH (09:00)
[2022-06-08] MEDS: Zinc Sulfate 220 MG CAP PO SCH (10:28)
[2022-06-08] MEDS: Ascorbic Acid 500 mg Chewable Tablet PO SCH (10:28)
[2022-06-08] MEDS: Glimepiride 1 MG TAB PO SCH (10:28)
[2022-06-08] MEDS ORDERED: Docusate 100 MG CAP PO PRN (10:30)
[2022-06-08] MEDS ORDERED: Fenofibrate Nanocrystallized 145 MG TAB PO SCH (11:00)
[2022-06-08] MEDS: Cephalexin 250 MG CAP PO SCH ×2 (17:14→23:30)
[2022-06-08] MEDS: Carvedilol 25 MG TAB PO SCH (17:14)
[2022-06-08] MEDS ORDERED: Melatonin 3 MG TAB PO PRN (20:37)
[2022-06-08] MEDS: Apixaban 5 MG TAB PO SCH (20:44)
[2022-06-09 04:54] LABS: #Eosinphils 0.4 thou/uL (0.0-0.7); #Lymphocytes 1.9 thou/uL (1.20-3.40); #Monocytes 0.5 thou/uL (0.11-0.59); #Neutrophils 3.3 thou/uL (1.40-6.50); %Basophils 0.6 % (0.0-1.0); %Eosinophils 6.8 % (0.0-10.0); %Lymphocytes 30.4 % (21.0-51.0); %Monocytes 7.5 % (0.0-10.0); %Neutrophils 54.7 % (42.0-75.0); Hemoglobin 11.7 g/dL (12.0-16.0); Mean Corpuscular HGB CONC 33.2 g/dL (32.0-36.0); Mean Corpuscular Volume 93.2 fl (78.0-98.0); Platelet Count 244 thou/uL (130-400); RBC Distribution Width 11.8 % (11.5-14.5); Red Blood Cell (RBC) Count 3.78 mill/uL (4.20-5.40); White Blood Cell (WBC) Count 6.1 thou/uL (4.8-10.8)
[2022-06-09 05:59] LABS: Anion Gap 13 mmol/L (10-20); BUN (Urea Nitrogen) 32 mg/dL (9.8-20.1); Calc. Creatinine Clearance 44 mL/min (70-130); Calcium 8.7 mg/dL (7.8-10.44); Carbon Dioxide 26 mmol/L (23-31); Chloride 101 mmol/L (98-107); Estimated GFR 24; Glucose 80 mg/dL (80-115); Potassium 3.4 mmol/L (3.5-5.1); Sodium 137 mmol/L (136-145)
[2022-06-09] MEDS: Furosemide 40 MG/4 ML VIAL SLOW IVP SCH ×2 (06:00→15:25)
[2022-06-09] MEDS: Cephalexin 250 MG CAP PO SCH ×3 (06:00→18:29)
[2022-06-09] MEDS: Fenofibrate Nanocrystallized 145 MG TAB PO SCH (09:58)
[2022-06-09] MEDS: Carvedilol 25 MG TAB PO SCH ×2 (09:58→18:29)
[2022-06-09] MEDS: Apixaban 5 MG TAB PO SCH ×2 (09:58→21:39)
[2022-06-09] MEDS: Ascorbic Acid 500 mg Chewable Tablet PO SCH (09:58)
[2022-06-09] MEDS: Zinc Sulfate 220 MG CAP PO SCH (09:59)
[2022-06-09] MEDS: Glimepiride 1 MG TAB PO SCH (09:59)
[2022-06-09] MEDS: Rosuvastatin 10 MG TAB PO SCH (09:59)
[2022-06-09] MEDS: Gabapentin 300 MG CAP PO SCH (09:59)
[2022-06-10] MEDS: Cephalexin 250 MG CAP PO SCH ×4 (00:44→18:15)
[2022-06-10 04:34] LABS: Anion Gap 14 mmol/L (10-20); BUN (Urea Nitrogen) 38 mg/dL (9.8-20.1); Calc. Creatinine Clearance 50 mL/min (70-130); Calcium 8.7 mg/dL (7.8-10.44); Carbon Dioxide 27 mmol/L (23-31); Chloride 99 mmol/L (98-107); Estimated GFR 27; Glucose 128 mg/dL (80-115); Potassium 3.4 mmol/L (3.5-5.1); Sodium 137 mmol/L (136-145)
[2022-06-10 04:43] LABS: #Eosinphils 0.4 thou/uL (0.0-0.7); #Monocytes 0.5 thou/uL (0.11-0.59); #Neutrophils 3.6 thou/uL (1.40-6.50); %Basophils 0.7 % (0.0-1.0); %Eosinophils 5.7 % (0.0-10.0); %Lymphocytes 30.5 % (21.0-51.0); %Monocytes 8.1 % (0.0-10.0); Hemoglobin 12.7 g/dL (12.0-16.0); Mean Corpuscular HGB CONC 34.3 g/dL (32.0-36.0); Mean Corpuscular Hemoglobin 31.9 pg (27.0-31.0); Mean Corpuscular Volume 93.1 fl (78.0-98.0); Mean Platelet Volume 8.2 fL (7.4-10.4); Platelet Count 246 thou/uL (130-400); RBC Distribution Width 11.8 % (11.5-14.5); Red Blood Cell (RBC) Count 3.99 mill/uL (4.20-5.40); White Blood Cell (WBC) Count 6.5 thou/uL (4.8-10.8)
[2022-06-10] MEDS: Furosemide 40 MG/4 ML VIAL SLOW IVP SCH (06:01)
[2022-06-10] MEDS: Apixaban 5 MG TAB PO SCH ×2 (09:33→20:42)
[2022-06-10] MEDS: Ascorbic Acid 500 mg Chewable Tablet PO SCH (09:33)
[2022-06-10] MEDS: Carvedilol 25 MG TAB PO SCH ×2 (09:33→18:15)
[2022-06-10] MEDS: Fenofibrate Nanocrystallized 145 MG TAB PO SCH (09:33)
[2022-06-10] MEDS: Gabapentin 300 MG CAP PO SCH (09:34)
[2022-06-10] MEDS: Zinc Sulfate 220 MG CAP PO SCH (09:34)
[2022-06-10] MEDS: Rosuvastatin 10 MG TAB PO SCH (09:34)
[2022-06-10] MEDS: Glimepiride 1 MG TAB PO SCH (09:37)
[2022-06-10] MEDS ORDERED: Potassium Chloride 20 MEQ TAB PO SCH (10:30)
[2022-06-10] MEDS ORDERED: Furosemide 20 MG TAB PO SCH (14:00)
[2022-06-10] MEDS: Furosemide 40 MG TAB PO SCH (14:28)
[2022-06-11] MEDS: Cephalexin 250 MG CAP PO SCH ×2 (00:01→05:38)
[2022-06-11 04:05] LABS: #Eosinphils 0.5 thou/uL (0.0-0.7); #Lymphocytes 2.8 thou/uL (1.20-3.40); #Monocytes 0.6 thou/uL (0.11-0.59); %Basophils 0.6 % (0.0-1.0); %Eosinophils 6.1 % (0.0-10.0); %Lymphocytes 35.3 % (21.0-51.0); %Monocytes 7.8 % (0.0-10.0); %Neutrophils 50.2 % (42.0-75.0); Hemoglobin 12.6 g/dL (12.0-16.0); Mean Corpuscular HGB CONC 32.7 g/dL (32.0-36.0); Mean Corpuscular Hemoglobin 30.1 pg (27.0-31.0); Mean Platelet Volume 8.3 fL (7.4-10.4); Platelet Count 284 thou/uL (130-400); RBC Distribution Width 11.9 % (11.5-14.5); White Blood Cell (WBC) Count 7.9 thou/uL (4.8-10.8)
[2022-06-11 04:24] LABS: Anion Gap 12 mmol/L (10-20); BUN (Urea Nitrogen) 41 mg/dL (9.8-20.1); Calc. Creatinine Clearance 47 mL/min (70-130); Calcium 8.9 mg/dL (7.8-10.44); Carbon Dioxide 30 mmol/L (23-31); Chloride 100 mmol/L (98-107); Estimated GFR 27; Glucose 84 mg/dL (80-115); Potassium 3.7 mmol/L (3.5-5.1); Sodium 138 mmol/L (136-145)
[2022-06-11] MEDS ORDERED: Potassium Chloride 10 MEQ TAB PO SCH (08:00)
[2022-06-11 08:15] VITALS: BP 135/65; TEMP 97.8
[2022-06-11] MEDS: Carvedilol 25 MG TAB PO SCH (09:23)
[2022-06-11] MEDS: Gabapentin 300 MG CAP PO SCH (09:24)
[2022-06-11] MEDS: Zinc Sulfate 220 MG CAP PO SCH (09:24)
[2022-06-11] MEDS: Ascorbic Acid 500 mg Chewable Tablet PO SCH (09:24)
[2022-06-11] MEDS: Apixaban 5 MG TAB PO SCH (09:24)
[2022-06-11] MEDS: Rosuvastatin 10 MG TAB PO SCH (09:24)
[2022-06-11] MEDS: Fenofibrate Nanocrystallized 145 MG TAB PO SCH (09:24)
[2022-06-11] MEDS: Furosemide 40 MG TAB PO SCH (09:24)
[2022-06-11] MEDS: Glimepiride 1 MG TAB PO SCH (09:25)
== END 2022-06-11 10:59 | disposition home or self-care (01) | DRG 291 ==
LOC: ERS 13:42 → ERHOLD 15:13 → MERGE 15:13 → 2NO 20:47
PROVIDERS: ADMIT Internal Medicine; ATTEND Hospitalist
DX: I13.0 Hypertensive heart and chronic kidney disease with heart failure and stage 1 through stage 4 chronic kidney disease, or unspecified chronic kidney disease (principal); I50.21 Acute systolic (congestive) heart failure; J96.01 Acute respiratory failure with hypoxia; U07.1 COVID-19; J12.82 Pneumonia due to coronavirus disease 2019; I24.8 Other forms of acute ischemic heart disease; N17.9 Acute kidney failure, unspecified; E78.5 Hyperlipidemia, unspecified; I48.91 Unspecified atrial fibrillation; N18.30 Chronic kidney disease, stage 3 unspecified; E11.22 Type 2 diabetes mellitus with diabetic chronic kidney disease; E78.00 Pure hypercholesterolemia, unspecified; Z87.891 Personal history of nicotine dependence; Z90.49 Acquired absence of other specified parts of digestive tract; Z90.710 Acquired absence of both cervix and uterus
CPT/HCPCS: 36415; 36416; 71045; 76705; 80048; 80053; 81003; 82550; 82553; 83690; 83880; 84145; 84443; 84484; 85025; 85379; 86140; 87070; 87205; 93005; 93306; 96372; 96374; J1650; J1940

== ENCOUNTER 2022-07-29 10:10 | Outpatient (CLI) | payer BC ==
[2022-07-29 11:49] LABS: #Eosinphils 0.3 10x3/uL (0.0-0.5); #Monocytes 0.5 10x3/uL (0.0-1.1); #Neutrophils 3.6 10x3/uL (1.5-8.4); %Basophils 0.5 % (0.0-2.0); %Eosinophils 5.9 % (0.0-6.0); %Lymphocytes 23.8 % (18.0-47.0); %Monocytes 7.7 % (0.0-10.0); %Neutrophils 61.9 % (40.0-75.0); Hemoglobin 12.8 g/dL (12.0-15.5); Mean Corpuscular HGB CONC 33.4 g/dL (32.0-36.0); Mean Corpuscular Hemoglobin 29.9 pg (27.0-33.0); Mean Corpuscular Volume 89.5 fl (81.6-98.3); Mean Platelet Volume 10.4 fl (7.4-10.4); Platelet Count 258 10x3/uL (150-450); RBC Distribution Width 13.3 % (11.5-14.5); Red Blood Cell (RBC) Count 4.28 10x6/uL (3.90-5.03); White Blood Cell (WBC) Count 5.8 10x3/uL (3.5-10.5)
[2022-07-29 12:08] LABS: Anion Gap 14 mmol/L (10-20); BUN (Urea Nitrogen) 31 mg/dL (9.8-20.1); Calc. Creatinine Clearance 0 mL/min (70-130); Calcium 8.7 mg/dL (7.8-10.44); Carbon Dioxide 31 mmol/L (23-31); Chloride 98 mmol/L (98-107); Estimated GFR 29; Glucose 254 mg/dL (80-115); Sodium 140 mmol/L (136-145)
== END 2022-07-29 10:11 | disposition home or self-care (01) ==
LOC: LABBT 10:10
PROVIDERS: ATTEND Internal Medicine Cardiovascular Disease
DX: Z01.812 Encounter for preprocedural laboratory examination (principal)
CPT/HCPCS: 80048; 85025

== ENCOUNTER 2022-08-02 05:52 | Day surgery (SDC) | payer BC ==
[2022-07-30 13:20] VITALS: BMI 35.5
[2022-08-02] MEDS ORDERED: PROPOFOL 20 ML ONE (07:54)
== END 2022-08-02 09:43 | disposition home or self-care (01) ==
LOC: SDC 05:52
PROVIDERS: ATTEND Internal Medicine Cardiovascular Disease
PROC: B246ZZ4 Ultrasonography of Right and Left Heart, Transesophageal (ICD-10-PCS; principal; 2022-08-02)
PROC: 5A2204Z Restoration of Cardiac Rhythm, Single (ICD-10-PCS; principal; 2022-08-02)
DX: I08.1 Rheumatic disorders of both mitral and tricuspid valves (principal); I48.91 Unspecified atrial fibrillation; I70.0 Atherosclerosis of aorta; I42.8 Other cardiomyopathies; I13.0 Hypertensive heart and chronic kidney disease with heart failure and stage 1 through stage 4 chronic kidney disease, or unspecified chronic kidney disease; E11.22 Type 2 diabetes mellitus with diabetic chronic kidney disease; N18.9 Chronic kidney disease, unspecified; I50.32 Chronic diastolic (congestive) heart failure; E78.00 Pure hypercholesterolemia, unspecified; I47.1 Supraventricular tachycardia; E66.01 Morbid (severe) obesity due to excess calories; Z68.35 Body mass index [BMI] 35.0-35.9, adult; Z85.3 Personal history of malignant neoplasm of breast; Z87.891 Personal history of nicotine dependence; Z79.01 Long term (current) use of anticoagulants; Z79.84 Long term (current) use of oral hypoglycemic drugs; Z79.899 Other long term (current) drug therapy
CPT/HCPCS: 36416; 92960; 93005; 93010; 93312; J2704

== ENCOUNTER 2022-10-26 15:33 | Emergency (ER) | payer OTHER ==
[2022-10-26] MEDS ORDERED: Acetaminophen 500 MG TAB ONE (17:33)
[2022-10-26] MEDS ORDERED: Ketorolac Tromethamine 30 MG/ML VIAL ONE (17:33)
== END 2022-10-26 18:04 | disposition home or self-care (01) ==
LOC: ERS 15:33
DX: M79.662 Pain in left lower leg (principal); I10 Essential (primary) hypertension; E78.00 Pure hypercholesterolemia, unspecified; E11.9 Type 2 diabetes mellitus without complications; Z85.3 Personal history of malignant neoplasm of breast; Z79.899 Other long term (current) drug therapy
CPT/HCPCS: 93005; 96372; J1885

== ENCOUNTER 2023-01-27 17:14 | Inpatient (IN) | payer BC, MEDICARE, OTHER ==
[2023-01-27 18:16] LABS: #Basophils 0.1 thou/uL (0.0-0.2); #Eosinphils 0.3 thou/uL (0.0-0.7); #Monocytes 0.7 thou/uL (0.11-0.59); #Neutrophils 5.5 thou/uL (1.40-6.50); %Basophils 0.6 % (0.0-1.0); %Lymphocytes 20.5 % (21.0-51.0); %Neutrophils 66.5 % (42.0-75.0); Hemoglobin 12.1 g/dL (12.0-16.0); Mean Corpuscular HGB CONC 32.7 g/dL (32.0-36.0); Mean Corpuscular Hemoglobin 31.5 pg (27.0-31.0); Mean Corpuscular Volume 96.4 fl (78.0-98.0); Platelet Count 261 10x3/uL (130-400); Red Blood Cell (RBC) Count 3.84 mill/uL (4.20-5.40); White Blood Cell (WBC) Count 8.2 10x3/uL (4.8-10.8)
[2023-01-27 18:44] LABS: ALT (SGPT) 10 U/L (8-55); AST (SGOT) 20 U/L (5-34); Albumin 3.3 g/dL (3.4-4.8); Alkaline Phosphatase 67 U/L (40-110); Anion Gap 13 mmol/L (10-20); BUN (Urea Nitrogen) 25 mg/dL (9.8-20.1); Bilirubin, Total 0.4 mg/dL (0.2-1.2); CK (CPK) 50 U/L (29-168); Calc. Creatinine Clearance 0 mL/min (70-130); Calcium 8.8 mg/dL (7.8-10.44); Carbon Dioxide 32 mmol/L (23-31); Chloride 102 mmol/L (98-107); Estimated GFR 29; Globulin 3.1 g/dL (2.4-3.5); Glucose 121 mg/dL (80-115); Lipase 83 U/L (8-78); Magnesium 1.9 mg/dL (1.6-2.6); Potassium 3.5 mmol/L (3.5-5.1); Protein, Total 6.4 g/dL (5.8-8.1); Sodium 143 mmol/L (136-145)
[2023-01-27] MEDS ORDERED: Acetaminophen 325 MG TAB PO PRN (19:35)
[2023-01-27] MEDS ORDERED: Ondansetron ODT 4 MG TAB SL PRN (19:35)
[2023-01-27] MEDS ORDERED: Ondansetron PF 4 MG/2 ML Vial IVP PRN (19:35)
[2023-01-27] MEDS ORDERED: Furosemide 40 MG/4 ML VIAL ONE (19:49)
[2023-01-27] MEDS ORDERED: Dextrose 50% Abboject 50 ML SYRINGE SLOW IVP PRN (20:47)
[2023-01-27] MEDS ORDERED: Acetaminophen 650 MG Suppository PR PRN (20:47)
[2023-01-27] MEDS ORDERED: HumaLOG 300 UNITS/3 ML VIAL SC PRN ×2 (20:47)
[2023-01-27] MEDS ORDERED: Glucagon 1 MG/ML KIT IM PRN (20:47)
[2023-01-27] MEDS ORDERED: Dextrose 5% in Water 1,000 ML IV PRN (20:47)
[2023-01-27] MEDS ORDERED: Electrolyte Replacement Protocol FS SCH (21:00)
[2023-01-27] MEDS ORDERED: Potassium Chloride 20 MEQ TAB PO SCH (21:00)
[2023-01-27] MEDS ORDERED: Furosemide 40 MG/4 ML VIAL SLOW IVP SCH (21:00)
[2023-01-27] MEDS: Potassium Chloride 20 MEQ in Premix Bag 1 BAG IVPB SCH (22:27)
[2023-01-27 23:49] VITALS: BMI 42.4
[2023-01-28] MEDS ORDERED: Amiodarone 200 MG TAB PO SCH ×2 (00:45→09:00)
[2023-01-28] MEDS ORDERED: Gabapentin 300 MG CAP PO SCH (00:45)
[2023-01-28] MEDS ORDERED: Apixaban 5 MG TAB PO SCH (00:45)
[2023-01-28] MEDS: Potassium Chloride 20 MEQ in Premix Bag 1 BAG IVPB SCH (01:13)
[2023-01-28] MEDS: hydrALAZINE 20 MG/ML VIAL SLOW IVP PRN ×3 (01:21→20:33)
[2023-01-28 04:51] LABS: #Basophils 0.1 thou/uL (0.0-0.2); #Eosinphils 0.3 thou/uL (0.0-0.7); #Monocytes 0.7 thou/uL (0.11-0.59); #Neutrophils 5.7 thou/uL (1.40-6.50); %Basophils 0.8 % (0.0-1.0); %Eosinophils 3.6 % (0.0-10.0); %Lymphocytes 20.5 % (21.0-51.0); %Neutrophils 66.9 % (42.0-75.0); Hemoglobin 11.7 g/dL (12.0-16.0); Mean Corpuscular HGB CONC 33.1 g/dL (32.0-36.0); Mean Corpuscular Hemoglobin 31.5 pg (27.0-31.0); Mean Corpuscular Volume 95.1 fl (78.0-98.0); Mean Platelet Volume 10.1 fL (7.4-10.4); Platelet Count 284 10x3/uL (130-400); RBC Distribution Width 13.8 % (11.5-14.5); Red Blood Cell (RBC) Count 3.71 mill/uL (4.20-5.40); White Blood Cell (WBC) Count 8.5 10x3/uL (4.8-10.8)
[2023-01-28] MEDS ORDERED: Furosemide 100 MG/10 ML VIAL SLOW IVP SCH ×2 (06:00→08:58)
[2023-01-28] MEDS ORDERED: Magnesium 2 GM/50 ML(in water) 2 GM in Premix Bag 1 BAG IVPB SCH (08:00)
[2023-01-28] MEDS ORDERED: Fenofibrate Nanocrystallized 145 MG TAB PO SCH (09:00)
[2023-01-28] MEDS: Gabapentin 300 MG CAP PO SCH ×2 (09:22→20:32)
[2023-01-28] MEDS: Apixaban 5 MG TAB PO SCH ×2 (09:23→20:31)
[2023-01-28] MEDS: Docusate 100 MG CAP PO SCH (09:23)
[2023-01-28 10:08] LABS: Anion Gap 14 mmol/L (10-20); BUN (Urea Nitrogen) 24 mg/dL (9.8-20.1); Calc. Creatinine Clearance 55 mL/min (70-130); Calcium 9.3 mg/dL (7.8-10.44); Carbon Dioxide 32 mmol/L (23-31); Chloride 100 mmol/L (98-107); Estimated GFR 30; Glucose 174 mg/dL (80-115); Magnesium 1.7 mg/dL (1.6-2.6); Potassium 3.7 mmol/L (3.5-5.1); Sodium 142 mmol/L (136-145)
[2023-01-28] MEDS ORDERED: Spironolactone 25 MG TAB PO SCH (11:45)
[2023-01-28] MEDS: Atorvastatin Calcium 20 MG TAB PO SCH (20:31)
[2023-01-29 05:32] LABS: Cardiac Risk 4.2 (Less than 4.5)
[2023-01-29] MEDS: hydrALAZINE 20 MG/ML VIAL SLOW IVP PRN (07:00)
[2023-01-29 08:25] LABS: Anion Gap 17 mmol/L (10-20); BUN (Urea Nitrogen) 27 mg/dL (9.8-20.1); Calc. Creatinine Clearance 50 mL/min (70-130); Calcium 9.1 mg/dL (7.8-10.44); Carbon Dioxide 26 mmol/L (23-31); Chloride 100 mmol/L (98-107); Estimated GFR 28; Glucose 85 mg/dL (80-115); Potassium 3.6 mmol/L (3.5-5.1); Sodium 139 mmol/L (136-145)
[2023-01-29] MEDS ORDERED: Ondansetron ODT 4 MG TAB PO PRN (08:51)
[2023-01-29 08:54] LABS: ALT (SGPT) 12 U/L (8-55); AST (SGOT) 25 U/L (5-34); Albumin 3.2 g/dL (3.4-4.8); Alkaline Phosphatase 70 U/L (40-110); Bilirubin, Direct 0.3 mg/dL (0.1-0.3); Bilirubin, Total 0.6 mg/dL (0.2-1.2); Lipase 59 U/L (8-78); Protein, Total 6.4 g/dL (5.8-8.1)
[2023-01-29] MEDS: Gabapentin 300 MG CAP PO SCH ×2 (08:56→21:47)
[2023-01-29] MEDS: Apixaban 5 MG TAB PO SCH ×2 (08:57→21:47)
[2023-01-29] MEDS: Glimepiride 2 MG TAB PO SCH (08:57)
[2023-01-29] MEDS: Spironolactone 25 MG TAB PO SCH (08:57)
[2023-01-29] MEDS: Torsemide 20 MG TAB PO SCH ×2 (08:57→14:49)
[2023-01-29] MEDS: Amiodarone 200 MG TAB PO SCH (08:57)
[2023-01-29] MEDS: Docusate 100 MG CAP PO SCH (08:57)
[2023-01-29] MEDS ORDERED: Furosemide 100 MG/10 ML VIAL SLOW IVP SCH (09:00)
[2023-01-29] MEDS ORDERED: Furosemide 40 MG/4 ML VIAL SLOW IVP SCH (09:00)
[2023-01-29] MEDS ORDERED: Valsartan 80 MG TAB PO SCH (09:00)
[2023-01-29] MEDS: Atorvastatin Calcium 20 MG TAB PO SCH (21:47)
[2023-01-30 02:07] VITALS: TEMP 98.1
[2023-01-30] MEDS: Spironolactone 25 MG TAB PO SCH (08:54)
[2023-01-30] MEDS: Glimepiride 2 MG TAB PO SCH (08:54)
[2023-01-30] MEDS: Gabapentin 300 MG CAP PO SCH (08:55)
[2023-01-30] MEDS: Amiodarone 200 MG TAB PO SCH (08:55)
[2023-01-30] MEDS: Torsemide 20 MG TAB PO SCH (08:55)
[2023-01-30] MEDS: Docusate 100 MG CAP PO SCH (08:55)
[2023-01-30] MEDS: Apixaban 5 MG TAB PO SCH (08:55)
[2023-01-30 09:09] LABS: Anion Gap 15 mmol/L (10-20); BUN (Urea Nitrogen) 36 mg/dL (9.8-20.1); Calc. Creatinine Clearance 41 mL/min (70-130); Calcium 8.6 mg/dL (7.8-10.44); Carbon Dioxide 27 mmol/L (23-31); Chloride 102 mmol/L (98-107); Estimated GFR 22; Glucose 151 mg/dL (80-115); Potassium 3.5 mmol/L (3.5-5.1); Sodium 140 mmol/L (136-145)
[2023-01-30] MEDS ORDERED: Potassium Chloride 20 MEQ TAB PO SCH (11:15)
[2023-01-30 11:20] VITALS: BP 155/70
== END 2023-01-30 12:05 | disposition home or self-care (01) | DRG 291 ==
LOC: ERS 17:14 → 2NO 19:48
PROVIDERS: ADMIT Student in an Organized Health Care Education/Training Program; ATTEND Family Medicine
DX: I13.0 Hypertensive heart and chronic kidney disease with heart failure and stage 1 through stage 4 chronic kidney disease, or unspecified chronic kidney disease (principal); I50.23 Acute on chronic systolic (congestive) heart failure; N18.4 Chronic kidney disease, stage 4 (severe); Z68.41 Body mass index [BMI] 40.0-44.9, adult; E66.01 Morbid (severe) obesity due to excess calories; E11.22 Type 2 diabetes mellitus with diabetic chronic kidney disease; E78.5 Hyperlipidemia, unspecified; I48.0 Paroxysmal atrial fibrillation; I42.9 Cardiomyopathy, unspecified; Z79.899 Other long term (current) drug therapy; Z79.01 Long term (current) use of anticoagulants; Z79.84 Long term (current) use of oral hypoglycemic drugs; Z90.49 Acquired absence of other specified parts of digestive tract; Z90.710 Acquired absence of both cervix and uterus; Z90.10 Acquired absence of unspecified breast and nipple; Z85.3 Personal history of malignant neoplasm of breast
CPT/HCPCS: 36415; 36416; 71045; 80048; 80053; 80061; 80076; 82550; 83690; 83735; 83880; 84443; 84484; 85025; 93005; 93798; 96374; J0360; J1940; J3475; J3480

== ENCOUNTER 2023-06-30 08:10 | Outpatient (CLI) | payer MEDICARE | END 2023-06-30 08:11 | disposition home or self-care (01) | LOC: BICMAMMO 08:10 | PROVIDERS: ATTEND Family Medicine | DX: Z12.31 Encounter for screening mammogram for malignant neoplasm of breast (principal); Z80.3 Family history of malignant neoplasm of breast; Z90.12 Acquired absence of left breast and nipple | CPT/HCPCS: 77063; 77067; 77080 ==

== ENCOUNTER 2024-01-04 13:18 | Outpatient (CLI) | payer MEDICARE | END 2024-01-04 13:19 | disposition home or self-care (01) | LOC: BICRAD 13:18 | PROVIDERS: ATTEND Internal Medicine Cardiovascular Disease | DX: I48.0 Paroxysmal atrial fibrillation (principal) | CPT/HCPCS: 71046 ==

== ENCOUNTER 2024-04-13 07:22 | Outpatient (CLI) | payer MEDICARE | END 2024-04-13 07:23 | disposition home or self-care (01) | LOC: ULT 07:22 | PROVIDERS: ATTEND Nurse Practitioner Family | DX: R74.8 Abnormal levels of other serum enzymes (principal) | CPT/HCPCS: 76700 ==

== ENCOUNTER 2024-07-02 09:47 | Outpatient (CLI) | payer MEDICARE | END 2024-07-02 09:48 | disposition home or self-care (01) | LOC: BICMAMMO 09:47 | PROVIDERS: ATTEND Family Medicine | DX: Z12.31 Encounter for screening mammogram for malignant neoplasm of breast (principal); N64.89 Other specified disorders of breast; Z80.3 Family history of malignant neoplasm of breast; Z90.12 Acquired absence of left breast and nipple | CPT/HCPCS: 77063; 77067 ==

== ENCOUNTER 2024-07-10 13:50 | Outpatient (CLI) | payer MEDICARE | END 2024-07-10 13:51 | disposition home or self-care (01) | LOC: BICMAMMO 13:50 | PROVIDERS: ATTEND Family Medicine | DX: N64.89 Other specified disorders of breast (principal); N63.15 Unspecified lump in the right breast, overlapping quadrants | CPT/HCPCS: 76642; 77065; G0279 ==

== ENCOUNTER 2024-07-31 11:37 | Outpatient (CLI) | payer MEDICARE | END 2024-07-31 11:38 | disposition home or self-care (01) | LOC: RAD 11:37 | PROVIDERS: ATTEND Nurse Practitioner Family | DX: I48.0 Paroxysmal atrial fibrillation (principal); M47.814 Spondylosis without myelopathy or radiculopathy, thoracic region; I70.0 Atherosclerosis of aorta | CPT/HCPCS: 71046 ==

== ENCOUNTER 2024-08-18 13:12 | Emergency (ER) | payer MEDICARE, OTHER ==
[~2024-08-18 13:12] MED LIST: Iopamidol-370 76% 500 ML MDV (1 ML CHARGE) ONE
[2024-08-18 14:02] LABS: #Basophils 0.06 10x3/uL (0.0-0.2); %Basophils 0.5 % (0.0-1.0); %Eosinophils 2.7 % (0.0-10.0); %Lymphocytes 13.7 % (21.0-51.0); %Monocytes 7.7 % (0.0-10.0); Hematocrit 38.6 % (36.0-47.0); Hemoglobin 12.5 g/dL (12.0-16.0); Mean Corpuscular HGB CONC 32.4 g/dL (32.0-36.0); Mean Corpuscular Hemoglobin 26.2 pg (27.0-31.0); Mean Corpuscular Volume 80.8 fL (78.0-98.0); Mean Platelet Volume 9.6 fL (7.4-10.4); Platelet Count 326 10x3/uL (130-400); RBC Distribution Width 15.1 % (11.5-14.5); Red Blood Cell (RBC) Count 4.78 mill/uL (4.20-5.40)
[2024-08-18 14:28] LABS: ALT (SGPT) 36 U/L (8-55); AST (SGOT) 60 U/L (5-34); Albumin 2.8 g/dL (3.4-4.8); Alkaline Phosphatase 109 U/L (40-110); Anion Gap 14 mmol/L (10-20); BUN (Urea Nitrogen) 21 mg/dL (9.8-20.1); Bilirubin, Total 0.5 mg/dL (0.2-1.2); Calc. Creatinine Clearance 0 mL/min (70-130); Calcium 8.8 mg/dL (7.8-10.44); Carbon Dioxide 20 mmol/L (23-31); Chloride 105 mmol/L (98-107); Estimated GFR 32; Globulin 4.4 g/dL (2.4-3.5); Glucose 129 mg/dL (83-110); Lipase 77 U/L (8-78); Potassium 3.3 mmol/L (3.5-5.1); Protein, Total 7.2 g/dL (5.8-8.1); Sodium 136 mmol/L (136-145)
[2024-08-18] MEDS ORDERED: Potassium Chloride 20 MEQ TAB ONE (16:03)
[2024-08-18] MEDS ORDERED: Dicyclomine 20 MG/2 ML VIAL ONE (16:03)
[2024-08-18 17:09] LABS: Bacteria/HPF None Seen HPF (None Seen); Bilirubin Negative (Negative); Blood, Urine Negative (Negative); CAUTI Indications for Culture Dysuria,urgency,freq; Clarity Clear (Clear); Glucose, Urine (Dipstick) Greater than 1000 mg/dL (Negative); Ketone, Urine Negative (Negative); Leukocyte Negative Leu/uL (Negative); Nitrite Negative (Negative); Protein, Urine (Dipstick) 50 mg/dL (Neg-Trace); RBC/HPF 0-3 HPF (0-3); Specific Gravity, Urine 1.042 (1.002-1.036); Squamous Epithelial 0-3 HPF (0-3); Urobilinogen Normal mg/dL (Less than 2); WBC/HPF 0-3 HPF (0-3); pH, Urine 5.5 (5.0-9.0)
[2024-08-18 17:24] LABS: Urine Culture Reflex No No
== END 2024-08-18 17:36 | disposition home or self-care (01) ==
LOC: ERS 13:12
DX: K52.9 Noninfective gastroenteritis and colitis, unspecified (principal); I10 Essential (primary) hypertension; E78.5 Hyperlipidemia, unspecified
CPT/HCPCS: 36415; 74177; 80053; 81001; 83690; 85025; 96360; 96372; Q9967

== ENCOUNTER 2024-09-14 11:36 | Emergency (ER) | payer OTHER ==
[2024-09-14 12:19] LABS: #Basophils 0.07 10x3/uL (0.0-0.2); %Basophils 0.7 % (0.0-1.0); %Eosinophils 4.9 % (0.0-10.0); %Lymphocytes 21.2 % (21.0-51.0); %Monocytes 7.1 % (0.0-10.0); %Neutrophils 65.8 % (42.0-75.0); Hematocrit 40.4 % (36.0-47.0); Hemoglobin 12.9 g/dL (12.0-16.0); Mean Corpuscular HGB CONC 31.9 g/dL (32.0-36.0); Mean Corpuscular Hemoglobin 25.7 pg (27.0-31.0); Mean Corpuscular Volume 80.5 fL (78.0-98.0); Mean Platelet Volume 9.5 fL (7.4-10.4); Platelet Count 358 10x3/uL (130-400); RBC Distribution Width 15.7 % (11.5-14.5); Red Blood Cell (RBC) Count 5.02 mill/uL (4.20-5.40)
[2024-09-14 12:37] LABS: ALT (SGPT) 56 U/L (Less than 34); AST (SGOT) 166 U/L (11-34); Albumin 3.1 g/dL (3.1-4.5); Alkaline Phosphatase 123 U/L (40-110); Anion Gap 15 mmol/L (10-20); BUN (Urea Nitrogen) 18 mg/dL (9.8-20.1); Bilirubin, Total 0.6 mg/dL (0.3-1.2); Calc. Creatinine Clearance 0 mL/min (70-130); Calcium 9.3 mg/dL (7.8-10.44); Carbon Dioxide 25 mmol/L (23-31); Chloride 103 mmol/L (98-107); Estimated GFR 41; Globulin 4.3 g/dL (2.4-3.5); Glucose 148 mg/dL (83-110); Potassium 3.8 mmol/L (3.5-5.1); Protein, Total 7.4 g/dL (5.8-8.1); Sodium 139 mmol/L (136-145)
[2024-09-14 12:42] LABS: Troponin I 0.025 ng/mL (< 0.028)
[2024-09-14] MEDS ORDERED: Metoclopramide HCl 10 MG (2 mL) VIAL ONE (15:05)
[2024-09-14] MEDS ORDERED: Ketorolac Tromethamine 30 MG (1 mL) VIAL ONE (15:05)
== END 2024-09-14 16:22 | disposition home or self-care (01) ==
LOC: ERS 11:36
DX: I10 Essential (primary) hypertension (principal); E11.9 Type 2 diabetes mellitus without complications
CPT/HCPCS: 70450; 71045; 80053; 84484; 85025; 93005; 99284; J1885; J2765; 36415

== ENCOUNTER 2024-09-22 10:24 | Emergency (ER) | payer OTHER ==
[2024-09-22 10:53] LABS: #Basophils 0.08 10x3/uL (0.0-0.2); %Basophils 0.9 % (0.0-1.0); %Eosinophils 2.6 % (0.0-10.0); %Lymphocytes 26.9 % (21.0-51.0); %Monocytes 6.4 % (0.0-10.0); Hematocrit 35.9 % (36.0-47.0); Hemoglobin 11.4 g/dL (12.0-16.0); Mean Corpuscular HGB CONC 31.8 g/dL (32.0-36.0); Mean Corpuscular Hemoglobin 25.4 pg (27.0-31.0); Mean Corpuscular Volume 80.1 fL (78.0-98.0); Mean Platelet Volume 9.5 fL (7.4-10.4); Platelet Count 367 10x3/uL (130-400); Red Blood Cell (RBC) Count 4.48 mill/uL (4.20-5.40)
[2024-09-22 11:25] LABS: ALT (SGPT) 36 U/L (Less than 34); AST (SGOT) 74 U/L (11-34); Albumin 2.9 g/dL (3.1-4.5); Alkaline Phosphatase 107 U/L (40-110); Anion Gap 17 mmol/L (10-20); BUN (Urea Nitrogen) 26 mg/dL (9.8-20.1); Bilirubin, Total 0.6 mg/dL (0.3-1.2); Calc. Creatinine Clearance 0 mL/min (70-130); Calcium 8.7 mg/dL (7.8-10.44); Carbon Dioxide 19 mmol/L (23-31); Chloride 104 mmol/L (98-107); Estimated GFR 33; Globulin 4.1 g/dL (2.4-3.5); Glucose 237 mg/dL (83-110); Potassium 3.4 mmol/L (3.5-5.1); Sodium 137 mmol/L (136-145)
[2024-09-22 13:38] LABS: Troponin I 0.023 ng/mL (< 0.028)
[2024-09-22 13:38] LABS: Bacteria/HPF None Seen HPF (None Seen); Bilirubin Negative (Negative); Blood, Urine Negative (Negative); CAUTI Indications for Culture Fever or rigors; Clarity Clear (Clear); Glucose, Urine (Dipstick) 30 mg/dL (Negative); Ketone, Urine Negative (Negative); Leukocyte Negative Leu/uL (Negative); Nitrite Negative (Negative); Protein, Urine (Dipstick) 20 mg/dL (Neg-Trace); RBC/HPF 0-3 HPF (0-3); Specific Gravity, Urine 1.009 (1.002-1.036); Urobilinogen Normal mg/dL (Less than 2); WBC/HPF 0-3 HPF (0-3)
[2024-09-22 13:39] LABS: Urine Culture Reflex No No
== END 2024-09-22 13:55 | disposition home or self-care (01) ==
LOC: ERS 10:24
DX: R55 Syncope and collapse (principal); I10 Essential (primary) hypertension; Z79.01 Long term (current) use of anticoagulants; Z79.899 Other long term (current) drug therapy; Z85.3 Personal history of malignant neoplasm of breast
CPT/HCPCS: 36415; 36416; 71045; 80053; 81001; 83690; 84484; 85025; 85379; 87428; 93005; 96360

== ENCOUNTER 2024-10-05 13:02 | Emergency (ER) | payer OTHER ==
[2024-10-05] MEDS ORDERED: Amlodipine 10 MG TAB PO SCH (14:15)
[2024-10-05 14:27] LABS: #Basophils 0.06 10x3/uL (0.0-0.2); %Basophils 0.8 % (0.0-1.0); %Eosinophils 4.9 % (0.0-10.0); %Lymphocytes 23.5 % (21.0-51.0); %Neutrophils 60.5 % (42.0-75.0); Hematocrit 31.7 % (36.0-47.0); Hemoglobin 10.2 g/dL (12.0-16.0); Mean Corpuscular HGB CONC 32.2 g/dL (32.0-36.0); Mean Corpuscular Hemoglobin 26.2 pg (27.0-31.0); Mean Corpuscular Volume 81.5 fL (78.0-98.0); Mean Platelet Volume 9.7 fL (7.4-10.4); Platelet Count 217 10x3/uL (130-400); RBC Distribution Width 16.1 % (11.5-14.5); Red Blood Cell (RBC) Count 3.89 mill/uL (4.20-5.40)
[2024-10-05] MEDS ORDERED: Lisinopril 20 MG TAB PO SCH (14:30)
[2024-10-05 14:43] LABS: ALT (SGPT) 27 U/L (Less than 34); AST (SGOT) 66 U/L (11-34); Albumin 2.7 g/dL (3.1-4.5); Alkaline Phosphatase 101 U/L (40-110); Anion Gap 11 mmol/L (10-20); BUN (Urea Nitrogen) 14 mg/dL (9.8-20.1); Bilirubin, Total 0.4 mg/dL (0.3-1.2); Calc. Creatinine Clearance 0 mL/min (70-130); Calcium 8.4 mg/dL (7.8-10.44); Carbon Dioxide 26 mmol/L (23-31); Chloride 106 mmol/L (98-107); Estimated GFR 45; Globulin 3.6 g/dL (2.4-3.5); Glucose 208 mg/dL (83-110); Potassium 3.7 mmol/L (3.5-5.1); Protein, Total 6.3 g/dL (5.8-8.1); Sodium 139 mmol/L (136-145)
[2024-10-05 14:47] LABS: Troponin I 0.028 ng/mL (< 0.028)
== END 2024-10-05 15:34 | disposition home or self-care (01) ==
LOC: ERS 13:02
DX: I10 Essential (primary) hypertension (principal); E11.9 Type 2 diabetes mellitus without complications; E78.00 Pure hypercholesterolemia, unspecified; Z79.01 Long term (current) use of anticoagulants; Z79.899 Other long term (current) drug therapy
CPT/HCPCS: 36415; 80053; 83880; 84484; 85025; 93005; 99283

== ENCOUNTER 2025-03-19 10:54 | Outpatient (CLI) | payer OTHER | END 2025-03-19 10:55 | disposition home or self-care (01) | LOC: SCSMRI 10:54 | PROVIDERS: ATTEND Orthopaedic Surgery | DX: S82.032A Displaced transverse fracture of left patella, initial encounter for closed fracture (principal); S83.282A Other tear of lateral meniscus, current injury, left knee, initial encounter; S83.232A Complex tear of medial meniscus, current injury, left knee, initial encounter; M71.22 Synovial cyst of popliteal space [Baker], left knee; R60.0 Localized edema ==

== ENCOUNTER 2025-03-28 09:47 | Outpatient (CLI) | payer OTHER ==
[2025-03-28 10:33] LABS: #Basophils 0.10 10x3/uL (0.0-0.2); #Eosinophils 0.47 10x3/uL (0.0-0.7); #Monocytes 0.60 10x3/uL (0.11-0.59); #Neutrophils 6.62 10x3/uL (1.40-6.50); %Basophils 1.0 % (0.0-1.0); %Eosinophils 4.7 % (0.0-10.0); %Lymphocytes 22.2 % (21.0-51.0); %Monocytes 6.0 % (0.0-10.0); %Neutrophils 65.7 % (42.0-75.0); Hematocrit 36.7 % (36.0-47.0); Hemoglobin 11.4 g/dL (12.0-16.0); Mean Corpuscular Hemoglobin 25.8 pg (27.0-31.0); Mean Corpuscular Volume 83.0 fL (78.0-98.0); Platelet Count 355 10x3/uL (130-400); Red Blood Cell (RBC) Count 4.42 mill/uL (4.20-5.40); White Blood Cell (WBC) Count 10.07 10x3/uL (4.8-10.8)
[2025-03-28 10:46] LABS: Anion Gap 15 mmol/L (10-20); BUN (Urea Nitrogen) 20 mg/dL (9.8-20.1); Calc. Creatinine Clearance 0 mL/min (70-130); Calcium 9.2 mg/dL (7.8-10.44); Carbon Dioxide 24 mmol/L (23-31); Chloride 102 mmol/L (98-107); Glucose 156 mg/dL (83-110); Potassium 4.3 mmol/L (3.5-5.1); Sodium 137 mmol/L (136-145)
== END 2025-03-28 09:48 | disposition home or self-care (01) ==
LOC: LABBT 09:47
PROVIDERS: ATTEND Orthopaedic Surgery
DX: Z01.818 Encounter for other preprocedural examination (principal); S83.232A Complex tear of medial meniscus, current injury, left knee, initial encounter; S83.272A Complex tear of lateral meniscus, current injury, left knee, initial encounter
CPT/HCPCS: 80048; 85025; 93005; 93010

== ENCOUNTER 2025-05-10 11:27 | Outpatient (CLI) | payer OTHER | END 2025-05-10 11:28 | disposition home or self-care (01) | LOC: BICRAD 11:27 | PROVIDERS: ATTEND Family Medicine | DX: M54.50 Low back pain, unspecified (principal); E78.2 Mixed hyperlipidemia; M47.816 Spondylosis without myelopathy or radiculopathy, lumbar region | CPT/HCPCS: 72100 ==